=== PATIENT | female | born 1955 | race Caucasian/White ===

== ENCOUNTER 2018-02-17 12:27 | Inpatient (IN) | payer MEDICAID ==
--- NOTE | 2018-02-17 12:52 | EDPHY ---
H & P Stated Complaint: ams over 2-3 wks .headache Time Seen by Provider: 02/17/18 12:33 HPI/ROS: This patient presents with headache, and change in mental status described by her friend as mild confusion over the course of the past week or more associated with the headache intermittent for 3-4 weeks. The patient has difficulty with her memory and word-finding increasing gradually over the same course of time. She admits difficulty concentrating as well. She made an appointment to see her primary care physician-Dr. Lavinia Mack here at [facility] and was sent from Dr. Mack to the emergency department for concern of the patient's mental status and hypoxia. Patient is on a demand nasal cannula that was set to 3 L with an O2 sat of 86%. She wears this for COPD. She reports an increased frequency of cough recently as well, but no coughing is noted here her course of far. Her friend drove her to [facility] by private vehicle ROS: Constitutional: No high fevers or chills. HEENT: She denies any recent URI symptoms. Neuro: No recent head trauma. No focal numbness tingling weakness. Pulmonary: Cough and dyspnea Cardiovascular: She denies chest pain, heart palpitations or lightheadedness. No new leg swelling or pain. GI: She vomited last night. She has decreased appetite today. She denies abdominal pain. No diarrhea : She reports dysuria. Integumentary: She has chronic skin changes to left lower extremity with no new rashes or diaphoresis. 10 point review of symptoms is performed and otherwise negative with exception of pertinent positives and negatives listed in HPI and ROS Source: Patient, Other (She is accompanied by her friend who helps care for her) Exam Limitations: Clinical condition - Medical/Surgical History PMH: DVT with ? [place] filter Hep C Other PMH: COPD - Family History Significant Family History: No pertinent family hx - Social History Smoking Status: Former smoker Alcohol Use: None Drug Use: None - Physical Exam Exam: Physical exam: Vital signs are normal General: Patient is in no acute distress. HEENT: Is no external evidence of trauma on exam. Nose atraumatic. Ears: Clear bilaterally with no hemotympanum. Oropharynx: No dental trauma or malocclusion. No intraoral lacerations. Eyes: Pupils are equal and reactive to light. Extraocular motions are intact. Optic fundi: Clear with no papilledema or hemorrhage. Neck: Trachea is midline with no stridor. The patient has no midline neck tenderness and retains a full range of motion without increase in pain. Lungs: Rales at the right base otherwise clear to auscultation bilaterally. Cardiac: Regular rate and rhythm no murmur gallop or rub. Chest: Nontender. Abdomen: Soft nontender no organomegaly Back: Nontender Extremities: Atraumatic Neuro: GCS of 14-mild confusion. Cranial nerves II through XII intact. Left- sided pronator drift is present with mild left-sided weakness in the hand. Initial differential diagnosis: Intracranial bleed, intracranial neoplasm, migraine, tension headache, pneumonia, COPD exacerbation, viral syndrome, bowel obstruction, aspiration, urinary tract infection, myocardial ischemic disease Constitutional: Initial Vital Signs Heart Rate 62 02/17/18 12:30 Respiratory Rate 16 02/17/18 12:30 Blood Pressure 142/97 H 02/17/18 12:30 O2 Sat (%) 87 L 02/17/18 12:30 O2 Delivery Mode Room Air O2 (L/minute) 2 Allergies/Adverse Reactions: meperidine [From Demerol] Allergy (Verified 02/17/18 12:45) Home Medications: Medication Instructions Recorded BIOTIN 02/17/18 Caltrate 600-D3-Min Chew Tab 02/17/18 Escitalopram Oxalate 02/17/18 LORazepam 02/17/18 Lisinopril 02/17/18 Meclizine HCl 02/17/18 Proair Hfa 02/17/18 Tramadol HCl 02/17/18 Vitamin D3 (*) 02/17/18 Warfarin Sodium 02/17/18 Medical Decision Making - Diagnostics EKG Interpretation: 12 lead EKG performed shortly after arrival at 12:51 p.m. reveals sinus rhythm at 60 Intervals: Normal throughout [place]: Normal throughout ST segments: Normal throughout Overall assessment: Normal EKG Imaging Results: Imaging Impressions Chest X-Ray 02/17/18 12:45 Impression: No acute findings in the chest. Head CT 02/17/18 12:46 Impression: 1. Extensive vasogenic edema in the right hemisphere with at least 2 discrete low-attenuation masses, highly suspicious for malignancy, with 8 mm right to left midline shift. MR brain with contrast is recommended for further evaluation. 2. Moderate white matter hypodensity in the left hemisphere, which could be related to chronic microvascular ischemic gliosis or small additional lesions occult on unenhanced CT. Findings discussed with DIONY DIAZ 02/17/2018 at 13:08. Portable chest x-ray: Rotated but no focal abnormalities by my interpretation Imaging: Discussed imaging studies w/ callisthenics instructor Radiologist (CT head - d/w w/ Dr. Virgen. I also personally reviewed these images.) ED Course/Re-evaluation: IV, monitor, patient was switch from her home on demand nasal cannula O2 at 3 L satting 86% to our nasal cannula at 4 L and sats in the mid 90s. Patient has a normal fingerstick blood sugar of 89 on arrival. POC CBC is normal, POC basic metabolic panel is normal Discuss the patient's CT head and reviewed the images with Dr. Virgen, radiologist-multiple right-sided intracranial neoplasm is a appear to be consistent with metastases with associated mild edema and slight midline shift. No evidence for herniation I discussed the patient's intracranial lesions with her and her friend that drove her here to the emergency department with her consent. After Toradol 15 mg IV and Tylenol 1000 mg p. O. At 2:40 p.m. Patient still has severe 9/10 headache. Given this will treat her with small dose of morphine -4 mg to help control pain. Answered all of her questions prior to transfer to [facility] Discussion: Patient with intracranial lesions concerning for metastases with resultant edema to the right neocortex wtih some mild midline shift accounting for her mental status change. No truncal herniation. She warrants admission for further workup and evaluation. I think that the patient's hypoxia on arrival is attributable to some dysfunction with her home O2 rather than a acute pulmonary condition. She has chronic COPD and also history of prior PEs that resulted in her baseline hypoxia and home O2. I spoke with Destiny Rivers for the hospitalist service who accepts this patient to Dr. Street-hospitalist for admission to the neuro floor for further workup and treatment Given patient's cerebral edema and mild midline shift I also spoke with Neurosurgery on-call-Dr. Gonzalez who agrees with plan for Decadron 10 mg IV and recommends that she continue Decadron 4 mg q.6 hours IV thereafter - Data Points Laboratory Results: 02/17/18 02/17/18 13:19 12:45 POC Sodium 143 mEq/L mEq/L (135-145) POC Potassium 3.6 mEq/L mEq/L (3.3-5.0) POC Chloride 101.0 mEq/L mEq/L (97-110) POC Total CO2 31 mEq/L mEq/L (22-31) POC BUN 18 mg/dL mg/dL (7-23) POC Creatinine 0.7 mg/dL mg/dL (0.6-1.0) POC Glucose 97 mg/dL mg/dL 89 mg/dL mg/dL (70-100) (70-100) POC Calcium 9.6 mg/dL mg/dL (8.5-10.4) Medications Given: Discontinued Medications Acetaminophen (Tylenol) 1,000 mg PO EDNOW ONE Stop: 02/17/18 13:29 Last Admin: 02/17/18 13:53 Dose: 1,000 mg Ketorolac Tromethamine (Toradol) 15 mg IVP EDNOW ONE Stop: 02/17/18 13:29 Last Admin: 02/17/18 13:55 Dose: 15 mg Point of Care Test Results: CBC CBC Collection Date 02/17/18 CBC Collection Time 13:15 WBC 7.1 RBC 4.08 HGB 12.1 HCT 37.5 PLT 108 Neut # 3.8 Neut 53.1 LYMPH # 2.6 LYMPH 36.5 Other WBC # 0.7 Other WBC 10.4 MCV 91.9 Chemistry 02/17/18 02/17/18 13:19 12:45 POC Sodium 143 mEq/L mEq/L (135-145) POC Potassium 3.6 mEq/L mEq/L (3.3-5.0) POC Chloride 101.0 mEq/L mEq/L (97-110) POC Total CO2 31 mEq/L mEq/L (22-31) POC BUN 18 mg/dL mg/dL (7-23) POC Creatinine 0.7 mg/dL mg/dL (0.6-1.0) POC Glucose 97 mg/dL mg/dL 89 mg/dL mg/dL (70-100) (70-100) POC Calcium 9.6 mg/dL mg/dL (8.5-10.4) Departure - Departure Disposition: [facility] Acute Clinical Impression: Intracranial space-occupying lesion Condition: Fair Referrals: Lavinia Mack MD [Primary Care Provider] - As per Instructions
--- NOTE | 2018-02-17 12:59 | CPEKG ---
Test Reason : OPEN Blood Pressure : / mmHG Vent. Rate : 060 BPM Atrial Rate : 061 BPM P-R Int : 168 ms QRS Dur : 089 ms QT Int : 391 ms P-R-T Axes : 064 033 033 degrees QTc Int : 391 ms Sinus rhythm Confirmed by Ronaldo Kaufman ([id number]) on 02/17/2018 12:59:19 PM Referred By: Confirmed By:Ronaldo Kaufman
[2018-02-17] MEDS ORDERED: KETOROLAC 15 MG/1 ML SDV IVP ONE ×2 (13:28→20:01)
[2018-02-17] MEDS ORDERED: ACETAMINOPHEN 500 MG TAB PO ONE (13:28)
[2018-02-17] MEDS ORDERED: DEXAMETHASONE 10 MG/ML VIAL IVP ONE (14:45)
[2018-02-17 14:59] LABS: INR 3.97 (0.83-1.16); PROTIME(PATIENT) 38.4 SEC (12.0-15.0)
[2018-02-17] MEDS ORDERED: DEXAMETHASONE 4 MG/ML VIAL IVP ONE ×2 (15:05→16:34)
[2018-02-17] MEDS ORDERED: ALBUTEROL 3 ML DEYVIAL IH PRN (16:34)
[2018-02-17] MEDS ORDERED: DEXAMETHASONE 4 MG/ML VIAL IVP SCH (17:00)
--- NOTE | 2018-02-17 19:28 | PDGENHP ---
History and Physical History and Physical: Chief complaint: headaches History of present illness: The patient is a 62-year-old female who was sent to the ED by her PCP Dr. Lavinia Mack for confusion and headaches. Patient had been experiencing headaches for the last month. She has had difficulty speaking properly. She admits to having had difficulty walking and doing normal activities. History is limited because patient is unable to communicate effectively. Past medical history: COPD, anemia, diabetes type 2, gastroparesis, GERD, DVT, hepatitis-C, hypertension, obesity, anxiety, agoraphobia with panic disorder. Past surgical history: Appendectomy, cholecystectomy, gastric bypass. Medications: Escitalopram, lisinopril, lorazepam, meclizine, nystatin- triamcinolone topical, ProAir HFA, tramadol, warfarin, biotin, Caltrate/vitamin D3, vitamin-C, multivitamin. Allergies: Demerol, opiates. Social history: Lives alone. Former tobacco user. Does not drink alcohol or do drugs. Has a son and daughter in [facility]. Family history: Breast cancer, lung cancer, ovarian cancer, prostate cancer, acute RI/CAD, CVA, DM2, alcoholic liver cirrhosis. Review of systems: 10 point review of systems was conducted and is negative except per HPI. Physical exam: Vitals: Reviewed General: The patient is an obese female who is awake and in no acute distress. HEENT: normocephalic, extraocular movements intact, conjunctivae clear, no lesions on face. Mucous membranes moist. Neck: trachea midline, no visible masses, no external lesions. CV: +S1/S2, RRR, no MRG. Resp: unlabored, CTAB no RRW. Abd: soft and nondistended. Nontender throughout. Musculoskeletal: Normal muscle tone/bulk. Neuro: cranial nerves II - XII grossly intact. 4/5 strength bilat UE/LE. Psych: Anxious mood/appropriate affect. Skin: No pallor. Discoloration of b/l ankles. Heme/lymph: No pitting peripheral edema. Labs: INR 3.97. Sodium 143 potassium 3.6 BUN 18 creatinine 0.7. Other Data: Head CT - 1. Extensive vasogenic edema in the right hemisphere with at least 2 discrete low-attenuation masses , highly suspicious for malignancy, with 8 mm right to left midline shift. MR brain with contrast is recommended for further evaluation. 2. Moderate white matter hypodensity in the left hemisphere, which could be related to chronic microvascular ischemic gliosis or small additional lesions occult on unenhanced CT. CXR: no acute cardiopulmonary findings. Personally interpreted. EKG-normal sinus rhythm, rate 60. No acute ischemic changes. Personally interpreted. Impression and plan: Brain masses Vasogenic edema of brain, 2/2 above -likely metastatic -- consider lung, breast, renal, GI, melanoma, lymphoma -NSG consulted- to see pt in AM. -Dexamethasone for edema. -Seizure precautions, Neuro checks. -If pt has a seizure, she can be loaded on Keppra. -Check CT chest/abd/pelv to eval for primary tumor. -Recommend a full breast and skin exam to eval for masses or abnormal nevi. -Recommend Oncology consult. Chronic issues: COPD Cough -On O2. SVNs prn shortness of breath. DM2 -Diet controlled at home. -While on steroid, SSI low with hyperglycemia protocol. Obesity GERD -famotidine. DVT on warfarin -continue warfarin, pharmacy to dose. -Hold tonight's dose for supratherapeutic INR. -Warfarin may be reversed if patient gets a biopsy soon. HTN -prn Enalapril. Anxiety -prn Ativan. Pt normally takes Ativan TID but holding this for now. Hep C, undetectable viral load
[2018-02-17] MEDS ORDERED: NS W/ 20 KCl/L 1,000 ML IV SCH (20:00)
[2018-02-17] MEDS: ACETAMINOPHEN 325 MG TAB PO PRN (20:35)
[2018-02-17] MEDS: DEXAMETHASONE 4 MG/ML VIAL IVP SCH (22:44)
[2018-02-18] MEDS ORDERED: D50W 25 GM/50 ML SYR IVP PRN (00:24)
[2018-02-18] MEDS ORDERED: ENALAPRILAT DIHYDRATE 1.25 MG/ML VIAL IVP PRN (00:25)
[2018-02-18] MEDS: traMADol 50 MG TAB PO PRN ×2 (02:23→20:22)
[2018-02-18] MEDS: DEXAMETHASONE 4 MG/ML VIAL IVP SCH ×4 (05:19→23:21)
[2018-02-18 05:50] LABS: PLATELET COUNT 103 10^3/uL (150-400)
[2018-02-18 06:01] LABS: INR 4.38 (0.83-1.16); PROTIME(PATIENT) 41.4 SEC (12.0-15.0)
[2018-02-18] MEDS ORDERED: ENOXAPARIN 40 MG/0.4 ML SYR SC SCH (09:00)
[2018-02-18] MEDS ORDERED: LORazepam 1 MG TAB PO PRN (09:30)
[2018-02-18] MEDS: LISINOPRIL 5 MG TAB PO SCH (09:36)
[2018-02-18] MEDS: FAMOTIDINE 20 MG TAB PO SCH (09:36)
[2018-02-18] MEDS: ESCITALOPRAM OXALATE 10 MG TAB PO SCH (09:36)
[2018-02-18] MEDS: INSULIN LISPRO 100 UNIT/ML SC SCH ×3 (09:37→18:41)
--- NOTE | 2018-02-18 09:38 | HOSPPROG ---
Hospitalist Progress Note Assessment/Plan: Brain masses - 1.3 and 1.4 cm adjacent masses in temporoparietal lobe with vasogenic edema, suspicious for metastatic process -neurosurgery consult appreciated -MRI brain w/wo to further evaluate -cont Dexamethasone for edema. -CT chest/abd/pelv to eval for primary tumor today, will proceed with biopsy if amenable lesion found -discussed with oncology, who will consult -Seizure precautions, Neuro checks. -If pt has a seizure, load with keppra COPD - stable, no e/o exacerbation DM2 - SSI Obesity GERD - famotidine DVT on warfarin - INR supratherapeutic -hold AC as will likely need tissue sampling HTN - prn Enalapril. Anxiety / panic disorder - resume home ativan Hep C, undetectable viral load Full code Dispo - cont inpt Subjective: Pt feel ok, slight headache near right parietal region, but better today. No N/V. No vision changes. Mentation better today. No fevers. Taking po, a bit anxious. Objective: Vital Signs Temp Pulse Resp BP Pulse Ox 36.7 C 53 L 19 113/47 L 96 02/18/18 08:00 02/18/18 08:00 02/18/18 08:00 02/18/18 08:00 02/18/18 08:00 Laboratory Results 02/18/18 05:31 02/18/18 05:31 02/17/18 02/18/18 02/19/18 05:59 05:59 05:59 Intake Total 1120 Output Total 500 Balance 620 PT 41.4 SEC (12.0-15.0) H 02/18/18 05:31 INR 4.38 (0.83-1.16) H 02/18/18 05:31 - Physical Exam Constitutional: no apparent distress Eyes: PERRL Ears, Nose, Mouth, Throat: moist mucous membranes Cardiovascular: regular rate and rhythym Respiratory: no respiratory distress, clear to auscultation Gastrointestinal: normoactive bowel sounds, soft, non-tender abdomen Skin: warm Musculoskeletal: full muscle strength Neurologic: AAOx3 Psychiatric: interacting appropriately, anxious ICD10 Worksheet Patient Problems: Problems Problem Status Onset Intracranial space-occupying lesion Acute
--- NOTE | 2018-02-18 09:44 | ASMTCMCOM ---
CM Note CM Note Notes: Pt is a 62 y/o female admitted for headaches. Pt has been having difficulties walking, speaking and doing normal activities. Therapies have been ordered and awaiting recommendations. Pt is being followed by wound care. Needs are TBD at this time. CM to follow. Plan: TBD Date Signed: 02/18/2018 09:43 AM Electronically Signed By:RODRIGUEZ Walls
[2018-02-18] MEDS ORDERED: NS 1,000 ML IV SCH (12:00)
[2018-02-18] MEDS ORDERED: IOPAMIDOL (ISOVUE 370) 100 ML BTL IV ONE (12:21)
--- NOTE | 2018-02-18 12:34 | PDMN ---
Medical Necessity Medical necessity: Pt meets INPT criteria per MD as of 02/17/18 and [facility] (est. LOS >2 MN for eval/mgmt of brain masses with vasogenic edema of brain ; requiring dexamethasone, oncology consult).
--- NOTE | 2018-02-18 12:56 | SOAPPROG ---
Downtime Inpatient MD Late Entry SOAP Note: Pt seen and examined. Continue decadron Workup for systemic disease suggested No need for AEDs Continue Steroids Await MRI Oncology opinion. .me
--- NOTE | 2018-02-18 14:44 | WOCRNPDOC ---
[facility] Advanced Assessment Note - Skin Integrity Problem, Advanced Assess Coccyx Scab Dressing Type: Open to Air Closure Description: Not Approximated Prema Wound Tissue: Intact Wound Bed Color: Brown Wound Bed Constitution: Scab, Dried Exudate Wound Edges: Attached, Well Defined Site Measurement - Head-to-Toe Length X Width X Depth (cm): 0.5x0.3xscab Skin Integrity Problem Comment: Patient up and using the restroom when I entered the room. With assist from STEPH Jackson, patient assisted back to chair. Coccyx visualized with patient standing in front of chair. Small intact scab to deep anatomical groove of gluteal cleft. Patient states that she "scratched" herself and created small wound. I suspect that this is intertriginal dermatitis and that the patient scratched the area, causing this small opening. Wound will not continue to follow this wound. Please reconsult if needed.
--- NOTE | 2018-02-18 15:04 | GCON ---
NEUROSURGICAL CONSULTATION DATE OF CONSULTATION: 02/18/2018 REASON FOR CONSULTATION: Right cerebral metastasis. HISTORY OF PRESENT ILLNESS: The patient is a 62-year-old who for the last month has been experiencin g headaches, difficulty speaking and having problems with activities of daily living. Her PCP yester day sent her to the Emergency Department for these symptoms. She has been having difficulty walking and she really struggles to communicate and does not give a clear history. PAST MEDICAL HISTORY: Significant for COPD, anemia, diabetes, gastroparesis, GERD, DVT, hepatitis C, hypertension, obesity, anxiety, agoraphobia with panic disorder. SOCIAL HISTORY: She lives alone. She used to use tobacco. She is not currently using alcohol or dr johnson. She has a son and daughter in [place], and she has not told them that she is in the hospital . ALLERGIES: She has allergies to Demerol and opiates. MEDICATIONS: 1. Citalopram. 2. Lisinopril. 3. Lorazepam. 4. Meclizine. 5. Nystatin. 6. ProAir. 7. Tramadol. 8. Warfarin. 9. Biotin. 10. Some vitamins. REVIEW OF SYSTEMS: She denies recent fevers or chills or inflammatory symptoms. She denies focal we akness. She is having trouble communicating. PHYSICAL EXAMINATION: VITAL SIGNS: Blood pressure 120/68, MAP 85, heart rate 61, respiratory rate 1 5, saturation 98% on 2 L nasal cannula. NEURO: Her eyes are open. She follows commands bilaterally . She really struggles to follow commands perfectly on the left side, and appears to have a left-brigida ed apraxia, but she is able to do it with coaxing. She has a positive left pronator drift. There is no actual focal motor weakness on the left despite the pronator drift that is seen. DIAGNOSTIC REVIEW: CT scan of the head demonstrates at least 2 right-sided cerebral hemispheric mets with extensive vasogenic edema filling much of the right parietal and occipital regions, almost cert ainly related to underlying metastatic disease. ASSESSMENT: The patient is a 62-year-old with right-sided lesions that probably represent metastatic disease. I have suggested an MRI of the brain with and without contrast, and a workup for systemic cancers. Pending the results of this, we will determine a course of action. I have discussed this w ith the patient and it is quite likely that there will not be any need for surgical intervention in t his case. We do suggest that she continue with Decadron and, in general, we did not recommend the us e of antiepileptic drugs in cases like this unless the patient has a seizure. We do suggest, however , continuing with high-dose Decadron an oncologic consultation to try to determine optimum treatment. /[id number]/MODL
[2018-02-18] MEDS ORDERED: GADOBUTROL 10 ML VIAL IVP ONE (15:10)
[2018-02-18] MEDS ORDERED: WARFARIN SODIUM 5 MG TAB PO SCH (16:00)
[2018-02-18] MEDS: LORazepam 0.5 MG TAB PO SCH ×2 (17:01→20:21)
--- NOTE | 2018-02-18 17:30 | GCON ---
CRITICAL CARE CONSULTATION DATE OF CONSULTATION: 02/18/2018 REASON FOR CONSULTATION: Intensive care unit evaluation and management of intracranial mass, likely representing a metastatic cancer. HISTORY: The patient is a 62-year-old with multiple medical problems. She presented to her primary care physician with confusion and headaches, which had been present and increasing for about a month. There was some difficulty speaking and word finding and some difficulties with ambulation and perfo rming ADLs normally. The patient presented to the emergency department. CT scan of the head was don e, which showed 2 lesions on the right side very suspicious for malignancy. There was surrounding ed chris and an 8 mm [id number] shift. The patient was admitted to the ICU on step-down status. PAST MEDICAL HISTORY: Remarkable for chronic obstructive pulmonary disease, systemic hypertension, a nxiety and depression, previous DVT on anticoagulation, type 2 diabetes, gastroesophageal reflux dise ase, hepatitis, and obesity. She is status post appendectomy, cholecystectomy and distant gastric by pass. MEDICATIONS AT HOME: As listed. DRUG ALLERGIES: Demerol, other opiates. SOCIAL HISTORY: The patient lives alone. She does have a caregiver. She smoked cigarettes in the p ast, no longer. Alcohol is negative. She has a son and daughter in [place]. FAMILY HISTORY: A number of family members have had cancer. REVIEW OF SYSTEMS: A 10-point review of systems is negative except as outlined above. PHYSICAL EXAMINATION: GENERAL: Reveals a very pleasant woman with some mild word-finding problems, lying comfortably in bed. She complains of a slight occipital headache. She denies shortness of bozena ath or abdominal problems. VITAL SIGNS: Blood pressure is 120/50, heart rate 70 with sinus rhythm o n the monitor. She is on 2 L of oxygen. She is afebrile. HEENT: Unremarkable for lymphadenopathy or thyromegaly. There are no obvious cranial nerve abnormalities. There is no jugular venous disten tion or lymphadenopathy appreciated. CHEST: Reveals decreased breath sounds bilaterally with a prol onged expiratory phase. There are no wheezes, rales, or rhonchi. HEART: Regular in rate and rhythm . There is a soft systolic murmur. Heart tones are distant. There is no obvious gallop. ABDOMEN: Obese, soft, nontender. There are no obvious masses or evidence of organomegaly. No Rodriguez catheter is in place. EXTREMITIES: Remarkable for chronic skin changes and associated chronic edema with 1+ pitting. NEUROLOGIC: Remarkable for her word-finding problems. There is some mild weakness on the left compared to the right. Left-sided coordination appears to be decreased. DATABASE: CT scan of the head is as outlined above in the HPI, with lesions on the right side associ ated with edema. These likely represent metastatic disease. CT scan of the chest and abdomen is unr emarkable for evidence of any obvious primary. A small adrenal lesion may or may not be present, pos sibly consistent with a metastasis? ASSESSMENT: 1. Probable metastatic disease to the brain. Primary is unknown. Workup for a primary is indicated . If no primary can be found and there are not other metastatic lesions, then a brain biopsy may be needed. 2. Abnormal mental status secondary to #1, improving with Decadron. 3. History of anxiety and depression. She is doing well currently and will be maintained on her out patient medications. 4. Chronic obstructive pulmonary disease secondary to previous tobacco abuse. She does use an inhal er at home and is on oxygen 01/09. Inhaled therapies will be continued. There is no evidence of an e xacerbation. 5. History of other medical problems, including hypertension, type 2 diabetes, gastroesophageal refl ux disease, etc. These are all stable. Outpatient medications will be continued. 6. History of previous deep venous thrombosis, on anticoagulation with Coumadin. PT/INR are signifi cantly elevated, and Coumadin is currently being held. PLAN AND RECOMMENDATIONS: The patient will be kept in the intensive care unit, and neurologic status will be monitored. Decadron will be continued. Her usual outpatient medications will be continued. Pepcid will be given for GI prophylaxis. DVT prophylaxis will be with SCDs initially, as she is at risk for hemorrhage into her [employer] lesions. Glucoses will be followed and insulin given by sliding sc svetlana coverage. Appropriate pain control will be maintained. At the present time, she will be kept as a full code. Warfarin will be held and INR followed. An MRI of the brain has been ordered and is p ending. Further plans and recommendations will be made based on her progress over the next 12-24 hours. /[id number]/MODL
[2018-02-19] MEDS: DEXAMETHASONE 4 MG/ML VIAL IVP SCH ×4 (04:50→23:11)
[2018-02-19 06:27] LABS: INR 3.97 (0.83-1.16); PROTIME(PATIENT) 38.4 SEC (12.0-15.0)
--- NOTE | 2018-02-19 06:45 | SOAPPROG ---
Downtime Inpatient MD Late Entry SOAP Note: MRI reviewed. She has a multifocal enhancing process in the right periventricular area. This almost certainly represents a glioblastoma. Multifocal periventricular enhancing lesions can also be a primary RIG SITE ENGINEER lymphoma and CSF cytology sometimes is useful in discerning this, but I do not think that will be helpful in this case because we have already started her on decadron AND this diagnosis is less likely. The most useful course would be to consider a stereotactic biopsy for tissue diagnosis and we should be able to do this tomorrow morning. She will need to be NPO past midnight. She may need another stealth protocol MRI She needs to be on the OR schedule. We will get this set up. I will discuss these options with her around noon today. Dr. Gonzalez will likely be the one doing the biopsy. -naomi pelaez md
[2018-02-19] MEDS ORDERED: PHYTONADIONE 2.5 MG/2.5 ML ORAL UDL PO ONE (06:51)
[2018-02-19] MEDS: LORazepam 0.5 MG TAB PO SCH ×3 (07:48→21:05)
[2018-02-19] MEDS: FAMOTIDINE 20 MG TAB PO SCH ×2 (07:48→21:06)
[2018-02-19] MEDS: LISINOPRIL 5 MG TAB PO SCH (07:48)
[2018-02-19] MEDS: ESCITALOPRAM OXALATE 10 MG TAB PO SCH (07:49)
[2018-02-19] MEDS: INSULIN LISPRO 100 UNIT/ML SC SCH ×3 (07:49→17:38)
--- NOTE | 2018-02-19 10:43 | HOSPPROG ---
Hospitalist Progress Note Assessment/Plan: Brain masses - 1.3 and 1.4 cm adjacent masses in temporoparietal lobe with vasogenic edema, suspicious for GBM by MRI findings, reviewed with rads and neurosurg. CT chest/abd/pelvis unrevealing for primary source. 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 Pt has h/o PE during and multiple DVT's, no known hypercoagulable state -Oral Vitamin K today to reverse INR for OR tomorrow -consider LE u/s for baseline, doubt active clot with therapeutic INR on arrival -plan for heparin bridge post-operatively COPD - stable, no e/o exacerbation DM2 - SSI Obesity GERD - famotidine HTN - prn Enalapril. Anxiety / Agoraphobia / panic disorder - resume home ativan Hep C, undetectable viral load Full code Dispo - cont inpt, ICU Subjective: Pt feels ok, no headaches. Speech is normal. She is worried about OR plans and diagnosis, but coping fairly well. Objective: Vital Signs Temp Pulse Resp BP Pulse Ox 37.0 C 65 20 125/50 H 95 02/19/18 08:00 02/19/18 08:00 02/19/18 08:00 02/19/18 08:00 02/19/18 08:00 Laboratory Results 02/18/18 18:35 02/18/18 05:31 02/18/18 02/19/18 02/20/18 05:59 05:59 05:59 Intake Total 1120 1433 Output Total 500 300 Balance 620 1133 PT 38.4 SEC (12.0-15.0) H 02/19/18 06:08 INR 3.97 (0.83-1.16) H 02/19/18 06:08 - Physical Exam Constitutional: no apparent distress Eyes: PERRL Ears, Nose, Mouth, Throat: moist mucous membranes Cardiovascular: regular rate and rhythym, no murmur, rub, or gallop Respiratory: no respiratory distress, clear to auscultation Gastrointestinal: normoactive bowel sounds, soft, non-tender abdomen Skin: warm Musculoskeletal: full muscle strength Neurologic: AAOx3 Psychiatric: interacting appropriately ICD10 Worksheet Patient Problems: Problems Problem Status Onset Intracranial space-occupying lesion Acute
[2018-02-19] MEDS: traMADol 50 MG TAB PO PRN ×2 (11:48→21:05)
--- NOTE | 2018-02-19 14:55 | ASMTCMCOM ---
CM Note CM Note Notes: Patient is going for biopsy tomorrow and a possible lumbar puncture. MDPOA was established today and the paperwork has been placed in the front of her chart. D/C plan remains TBD . CM will follow. Date Signed: 02/19/2018 02:54 PM Electronically Signed By:Gina Brock LCSW
--- NOTE | 2018-02-19 15:48 | PDINTPN ---
Nurses Educator Progress Note Assessment/Plan: Assessment: Likely glioblastoma. For possibly for brain biopsy tomorrow. History of DVT/PE. On warfarin anticoagulation. INR high. Will need to be reversed. Getting vitamin K today. Likely will need FFP prior to biopsy. History of COPD, on oxygen 01/09. No evidence of exacerbation. Obesity. Insulin-requiring diabetes. Higher glucoses secondary to Decadron. May need additional coverage, possibly add Lantus if glucoses continue to run high. History of other medical problems including systemic hypertension, gastroesophageal reflux, anxiety and depression. Plan: Continue present care. Continue Decadron. Follow sugars. Continue insulin. Increased necessary. Continue pain control, supportive care. Follow INR in a.m.. Fresh frozen plasma if indicated prior to surgical biopsy. NPO after midnight. 25 min of critical care time spent with the patient. Discussed with nursing, hospitalist, ICU multi disciplinary team. Subjective: No complaints. Headache seems to be better. Some word-finding problems persist. Denies pain, shortness of breath. Objective: Vital Signs Temp Pulse Resp BP Pulse Ox 37.2 C 54 L 17 134/75 H 97 02/19/18 11:29 02/19/18 11:29 02/19/18 11:29 02/19/18 11:29 02/19/18 11:29 Laboratory Results 02/18/18 18:35 02/18/18 05:31 02/18/18 02/19/18 02/20/18 05:59 05:59 05:59 Intake Total 1120 1433 450 Output Total 500 300 Balance 620 1133 450 PT 38.4 SEC (12.0-15.0) H 02/19/18 06:08 INR 3.97 (0.83-1.16) H 02/19/18 06:08 MRI: Most consistent with primary brain tumor: Glioblastoma. Physical Exam - Physical Exam General Appearance: alert, no apparent distress, obese EENT: PERRL/EOMI, other (Nasal cannula at 2 L) Neck: normal inspection Respiratory: lungs clear (Anteriorly), decreased breath sounds (At bases), rales (Few rales at bases), No rhonchi Cardiac/Chest: bradycardia (Sinus), No gallop Abdomen: normal bowel sounds, non-tender, soft (Obese) Extremities: pedal edema (1 to 2+ bilaterally) Neuro/Psych: cognition abnormalities (Mild, probably at baseline?), speech abnormalities (Still with some word-finding problems in expressive aphasia), No no motor/sensory deficits (Moves all extremities. Some weakness on the left) ICD10 Worksheet Patient Problems: Problems Problem Status Onset Intracranial space-occupying lesion Acute
[2018-02-19] MEDS: ACETAMINOPHEN 325 MG TAB PO PRN (21:06)
[2018-02-20] MEDS: DEXAMETHASONE 4 MG/ML VIAL IVP SCH ×4 (04:02→22:16)
[2018-02-20 04:30] LABS: INR 1.54 (0.83-1.16); PROTIME(PATIENT) 18.6 SEC (12.0-15.0)
[2018-02-20] MEDS ORDERED: LR 1,000 ML IV ONE (07:47)
[2018-02-20] MEDS ORDERED: IOPAMIDOL (ISOVUE 370) 100 ML BTL IV ONE (08:32)
--- NOTE | 2018-02-20 08:33 | PDANEPAE ---
ANE Past Medical History - Pulmonary History Hx Oxygen in Use at Home: Yes O2 in Use at Home (L/minute): 2.5 Hx Sleep Apnea: No Sleep Apnea Screening Result - Last Documented: Positive - Endocrine History Hx Diabetes: No - Chronic Pain History Chronic Pain: No ANE Review of Systems Review of Systems: ANE Patient History - Allergies Allergies/Adverse Reactions: meperidine [From Demerol] Allergy (Verified 02/17/18 12:45) - Home Medications Home Medications: Albuterol [Proventil Inhaler HFA (*)] 1 - 2 puffs IH Q4H PRN 02/17/18 [Last Taken Unknown] Escitalopram Oxalate [Lexapro] 20 mg PO DAILY 02/17/18 [Last Taken 02/17/18] Herbals/Supplements -Info Only 1 ea PO DAILY 02/17/18 [Last Taken Unknown] LORazepam [Ativan (*)] 0.5 mg PO TID 02/17/18 [Last Taken Unknown] LORazepam [Ativan (*)] 1 mg PO TID PRN 02/17/18 [Last Taken Unknown] Lisinopril [Zestril 5 mg (*)] 5 mg PO DAILY 02/17/18 [Last Taken 02/17/18] Warfarin Sodium [Coumadin 5MG (*)] 10 mg PO BARBOSA 02/17/18 [Last Taken 02/14/18] Warfarin Sodium [Coumadin 5MG (*)] 12.5 mg PO MOTUWETHFRSA 02/17/18 [Last Taken 02/17/18] traMADol [Ultram 50 mg (*)] 50 mg PO Q6H PRN 02/17/18 [Last Taken Unknown] - NPO status NPO Since - Liquids (Date): 02/19/18 NPO Since - Liquids (Time): 23:00 NPO Since - Solids (Date): 02/20/18 NPO Since - Solids (Time): 23:00 - Smoking Hx Smoking Status: Former smoker - Alcohol Use Alcohol Use: None ANE Labs/Vital Signs - Labs Result Diagrams: 02/20/18 03:45 02/18/18 05:31 - Vital Signs Blood Pressure: 140/60 Heart Rate: 56 Respiratory Rate: 16 O2 Sat (%): 98 Height: 162.56 cm Weight: 109.134 kg ANE Physical Exam - Airway Neck exam: decreased ROM Mallampati Score: Class 3 Mouth exam: dentures - Pulmonary Pulmonary: reduced air movement - Cardiovascular Cardiovascular: regular rate and rhythym - ASA Status ASA Status: III ANE Anesthesia Plan Anesthesia Plan: general endotracheal anesthesia
[2018-02-20] MEDS ORDERED: ROCURONIUM 50 MG/5 ML VIAL ONE (08:39)
[2018-02-20] MEDS ORDERED: LIDOCAINE 2% 100 MG/5 ML SYR ONE (08:39)
[2018-02-20] MEDS ORDERED: PROPOFOL 200 MG/20 ML VIAL ONE (08:39)
[2018-02-20] MEDS ORDERED: fentaNYL 100 MCG/2 ML INJ ONE ×2 (08:39→09:40)
[2018-02-20] MEDS ORDERED: THROMBIN (BOVINE) 5,000 UNIT VIAL TP ONE (08:44)
[2018-02-20] MEDS ORDERED: GENTAMICIN SULFATE 80 MG/2 ML VIAL ONE (08:44)
[2018-02-20] MEDS ORDERED: CHLORHEXIDINE GLUC HIBICLENS 118 ML BTL TP ONE (08:44)
[2018-02-20] MEDS ORDERED: BACITRACIN ZINC 0.5 OZ OINTTUBE TP ONE (08:44)
[2018-02-20] MEDS ORDERED: LIDO/EPI 1% **Not for Epidural 20 ML MDV ONE (08:45)
[2018-02-20] MEDS ORDERED: POVIDONE-IODINE 30 GM OINTTUBE TP ONE (08:45)
[2018-02-20] MEDS ORDERED: ceFAZolin 2 GM/DEXTROSE 100 ML IV ONE (09:30)
[2018-02-20] MEDS ORDERED: SUGAMMADEX SODIUM 200 MG/2 ML VIAL IVP ONE (10:55)
[2018-02-20] MEDS ORDERED: niCARdipine/NACL 200 ML IV PRN (11:09)
[2018-02-20] MEDS ORDERED: MAGNESIUM HYDROXIDE 30 ML UDCUP PO PRN (11:09)
[2018-02-20] MEDS ORDERED: LACTULOSE 20 GM/30 ML UDCUP PO PRN (11:09)
[2018-02-20] MEDS ORDERED: POLYETHYLENE GLYCOL 3350 17 GM PKT PO PRN (11:09)
[2018-02-20] MEDS ORDERED: BISACODYL 10 MG SUPP PR PRN (11:09)
[2018-02-20] MEDS ORDERED: NS W/ 20 KCl/L 1,000 ML IV SCH (11:15)
[2018-02-20] MEDS ORDERED: fentaNYL 100 MCG/2 ML INJ IVP PRN (11:16)
[2018-02-20] MEDS ORDERED: ALBUTEROL 3 ML DEYVIAL IH PRN (11:16)
[2018-02-20] MEDS ORDERED: NALOXONE HCL 0.4 MG/ML INJ IVP PRN (11:16)
[2018-02-20] MEDS ORDERED: ONDANSETRON 4 MG/2 ML VIAL IVP PRN (11:16)
--- NOTE | 2018-02-20 11:16 | SOAPPROG ---
SOAP Progress Note Assessment/Plan: Assessment: 62 yo F sp right thalamic brain biopsy Plan: stable CT this afternoon no need for keppra SBP < 160 mmhg on decadron please call with neuro changes SDU ok with Q2 hour neuro checks 02/20/18 11:14 Subjective: + headache, no N/V. Objective: Vital Signs Temp Pulse Resp BP Pulse Ox 37 C 56 L 16 140/60 H 98 02/20/18 07:44 02/20/18 08:33 02/20/18 08:33 02/20/18 08:33 02/20/18 08:33 Laboratory Results 02/20/18 03:45 02/18/18 05:31 02/19/18 02/20/18 02/21/18 05:59 05:59 05:59 Intake Total 1433 2350 Output Total 300 400 Balance 1133 1950 PT 18.6 SEC (12.0-15.0) H 02/20/18 03:45 INR 1.54 (0.83-1.16) H 02/20/18 03:45 somnolent PERRL, no facial droop KIRSTIN x 4 + light touch C/D/I ICD10 Worksheet Patient Problems: Problems Problem Status Onset Intracranial space-occupying lesion Acute
--- NOTE | 2018-02-20 11:18 | POSTANESTH ---
Post Anesthetic Evaluation Cardiovascular Status: Similar to Pre-Op Cond Respiratory Status: Similar to Pre-op Cond. Level of Consciousness/Mental Status: Mildly Sleepy, Arousable Pain Control: Adequate, Prn Tx Ordered Nausea/Vomiting Control: Adequate, Prn Tx Ordered Complications Possibly Related to Anesthesia: None Noted
[2018-02-20] MEDS: INSULIN LISPRO 100 UNIT/ML SC SCH ×3 (14:16→17:25)
[2018-02-20] MEDS: OXYCODONE/APAP 5/325 TAB PO PRN ×3 (14:19→22:17)
[2018-02-20] MEDS: LORazepam 0.5 MG TAB PO SCH ×3 (14:19→20:16)
[2018-02-20] MEDS: LISINOPRIL 5 MG TAB PO SCH (14:23)
[2018-02-20] MEDS: ESCITALOPRAM OXALATE 10 MG TAB PO SCH (14:24)
[2018-02-20] MEDS: FAMOTIDINE 20 MG TAB PO SCH ×2 (14:24→20:16)
--- NOTE | 2018-02-20 15:50 | HOSPPROG ---
Hospitalist Progress Note Assessment/Plan: 62-year-old woman admitted from clinic with confusion and headaches. Found to have a brain mass associated with edema. She went to have a brain biopsy today. # brain mass, no obvious primary noted on CT of the chest abdomen and pelvis * Reviewed neurosurgery notes, status post biopsy today * Continue dexamethasone for edema * Consult with Oncology once tissue diagnosis * Seizure precautions on Keppra # history of recurrent DVT on warfarin. Coumadin held today post surgery will need to review with Neurosurgery 1 safe to resume anticoagulation. * Continue SCDs # COPD, stable # diabetes, insulin sliding scale # GE reflux disease currently on famotidine # hypertension, p.r.n. Enalapril # anxiety with panic disorder on Ativan p.r.n. # hepatitis-C, undetectable viral load Subjective: Patient new to me and chart reviewed. Patient complains of headache pain otherwise doing quite well postop biopsy Objective: Vital Signs Temp Pulse Resp BP Pulse Ox 36.7 C 75 20 120/57 L 94 02/20/18 12:08 02/20/18 14:37 02/20/18 14:37 02/20/18 14:37 02/20/18 14:37 Laboratory Results 02/20/18 03:45 02/18/18 05:31 02/19/18 02/20/18 02/21/18 05:59 05:59 05:59 Intake Total 1433 2350 550 Output Total 300 400 1 Balance 1133 1950 549 PT 18.6 SEC (12.0-15.0) H 02/20/18 03:45 INR 1.54 (0.83-1.16) H 02/20/18 03:45 - Physical Exam Constitutional: obese, uncomfortable Ears, Nose, Mouth, Throat: moist mucous membranes Cardiovascular: regular rate and rhythym Respiratory: no respiratory distress, clear to auscultation Gastrointestinal: soft, non-tender abdomen Genitourinary: no bladder fullness Skin: warm Musculoskeletal: generalized weakness Neurologic: No facial droop Psychiatric: interacting appropriately ICD10 Worksheet Patient Problems: Problems Problem Status Onset Intracranial space-occupying lesion Acute
--- NOTE | 2018-02-20 17:18 | PDINTPN ---
External Auditor Progress Note Assessment/Plan: Assessment: Likely glioblastoma. Status post brain biopsy on the right today. Results pending.. History of DVT/PE. On warfarin anticoagulation. On hold currently. Will discuss re-initiation of warfarin with neuro surgery. History of COPD, on oxygen 24/ at home, but does not appear to need this at present. Saturations 94% on room air today. Obesity. Insulin-requiring diabetes. Higher glucoses secondary to Decadron: 200s. Will add Lantus at night. History of other medical problems including systemic hypertension, gastroesophageal reflux, anxiety and depression. Plan: Continue present care. Continue Decadron. Add Lantus, continue p.r.n. Insulin, follow sugars. Continue pain control, supportive care. Follow INR in a.m. Await biopsy results. 25 min of critical care time spent with the patient. Discussed with nursing, hospitalist, ICU multi disciplinary team. Subjective: Complains of headache following brain biopsy. Objective: Vital Signs Temp Pulse Resp BP Pulse Ox 36.7 C 61 20 116/62 94 02/20/18 12:08 02/20/18 16:00 02/20/18 16:00 02/20/18 16:00 02/20/18 14:37 Laboratory Results 02/20/18 03:45 02/18/18 05:31 02/19/18 02/20/18 02/21/18 05:59 05:59 05:59 Intake Total 1433 2350 550 Output Total 300 400 1 Balance 1133 1950 549 PT 18.6 SEC (12.0-15.0) H 02/20/18 03:45 INR 1.54 (0.83-1.16) H 02/20/18 03:45 Physical Exam - Physical Exam General Appearance: alert, mild distress, obese, other (Up in chair) EENT: PERRL/EOMI, other (On room air) Neck: normal inspection Respiratory: lungs clear (Anteriorly), decreased breath sounds (At bases), wheezing (Few wheezes at the bases, coarse breath sounds) Cardiac/Chest: regular rate, rhythm Abdomen: normal bowel sounds, non-tender, soft Pelvic Exam: other (No Rodriguez catheter) Skin: normal color, warm/dry Extremities: pedal edema Neuro/Psych: speech abnormalities (Word-finding problems persist), No no motor/ sensory deficits (Mild left-sided weakness), No cognition abnormalities ( Probably close to baseline) ICD10 Worksheet Patient Problems: Problems Problem Status Onset Intracranial space-occupying lesion Acute
[2018-02-20] MEDS: traMADol 50 MG TAB PO PRN (20:16)
[2018-02-20] MEDS: SENNOSIDES/DOCUSATE SODIUM TAB PO SCH (20:16)
--- NOTE | 2018-02-20 21:28 | GOP ---
DATE OF OPERATION: 02/20/2018 SURGEON: Keny Gonzalez MD NEUROSURGEON: Keny Gonzalez MD. LINTER DRIER OPERATOR: Abdelrahman Smalls PA-C. ANESTHESIA: General endotracheal. PREOPERATIVE DIAGNOSIS: Multifocal right posterior temporal and parietal brain lesions. POSTOPERATIVE DIAGNOSIS: Multifocal right posterior temporal and parietal brain lesions. PROCEDURE PERFORMED: 1. Right posterior temporal stereotactic brain biopsy. 2. Use of Stealth stereotactic navigation for brain biopsy. FINDINGS: Successful right stereotactic brain biopsy. SPECIMENS: Right temporal brain biopsy for frozen and then permanent section with the frozen section showing glioma. There were no drains. ESTIMATED BLOOD LOSS: Less than 5 cc. Fluids and urine output per the anesthesia record. INDICATIONS: The patient is a 62-year-old woman who presented with some mild left arm weakness, head aches, and confusion. CT and subsequent MRI scan revealed contrast-enhancing lesions in the right po sterior temporal lobe adjacent to the lateral ventricle and several other lesions scattered throughou t the subcortical white matter in the same region. The imaging of this was consistent with either gl ioma or lymphoma, and therefore she was scheduled for a stereotactic biopsy. I discussed the risks a nd benefits of this with her prior to the procedure, including that of bleeding and the possibility o f getting nondiagnostic tissue, given the small size of the biopsy. We also discussed things like se izures and infection. She agreed to proceed and we are proceeding electively today. DESCRIPTION OF PROCEDURE: After informed consent was obtained from the patient, the patient was brou ght to the operating room and was placed in a supine position on the operating table. A formal time- out was performed, identifying the patient by name, medical record number, and date of . Preope rative antibiotics were given. The endotracheal tube was placed and general endotracheal anesthesia was smoothly induced. The patient's head was placed in the Rubio pins and turned toward the left side, exposing the right posterior temporal region. The Stealth was registered to the scalp and [facility] ked for accuracy using known surface landmarks. The accuracy appeared excellent, and the entry point to the preplanned trajectory to the right posterior temporal lobe was identified just superior and p osterior to the right pinna. This was marked and a small strip of hair was clipped. 10 cc of 0.25% Marcaine with epinephrine was infiltrated in the skin for hemostasis. The head was then prepped and draped in normal sterile fashion. A skin incision was made using a 10 blade and the subcutaneous tissues were dissected using monopolar electrocautery. A few Nancy clips were placed for hemostasis. A self-retaining retractor was place d. Again, the entry point to the trajectory was localized using navigation and a single bur hole was created using the restaurant hourly team member. The [employer] Navigus frame was then connected to the skull using the m anufacturer-supplied screws. The biopsy setup was then connected and the trajectory was locked in us ing the navigation. The planned depth of the needle to the preplanned target point was recorded, and the depth was set using the manual depth gauge onto the biopsy needle. A small opening was then mad e in the dura and the biopsy needle was passed using navigation to the center of the lesion. At this point, several needle biopsies were taken at 12 o'clock, 3 o'clock, 6 o'clock, and 9 o'clock positio ns. These were sent for frozen section. Talking with the pathologist, this showed some abnormal tis jody with some gemistocytes and could represent glioma, but was not extremely obvious. I then took se veral more cores and sent those again for 2nd frozen section, which was consistent with glioma. We bg briggs took 6 further cores, which all grossly appeared abnormal, and these were sent for permanent path ology. The biopsy needle was then removed with no sign of any bleeding. The dura was covered with some Gelf oam and the bur hole was covered with a bur hole cover. The wound was then copiously irrigated using bacitracin irrigation. The galea was closed using interrupted 2-0 Vicryl. The skin was closed usin g anna. Sterile dressings were placed. The patient was then awakened in the operating room. She was extubated, transferred to the PACU in stable condition. There were no operative complications. I was scrubbed and present the entire procedure. All sponge and needle counts were correct at the e nd of the case. /[id number]/MODL
[2018-02-21] MEDS: DEXAMETHASONE 4 MG/ML VIAL IVP SCH ×4 (05:02→22:31)
[2018-02-21 06:09] LABS: INR 1.17 (0.83-1.16); PROTIME(PATIENT) 15.1 SEC (12.0-15.0)
[2018-02-21 06:16] LABS: PLATELET COUNT 109 10^3/uL (150-400)
[2018-02-21] MEDS: INSULIN LISPRO 100 UNIT/ML SC SCH ×3 (08:25→17:52)
[2018-02-21] MEDS: OXYCODONE/APAP 5/325 TAB PO PRN ×3 (08:28→21:22)
[2018-02-21] MEDS: LISINOPRIL 5 MG TAB PO SCH (08:36)
[2018-02-21] MEDS: FAMOTIDINE 20 MG TAB PO SCH ×2 (08:37→21:23)
[2018-02-21] MEDS: LORazepam 0.5 MG TAB PO SCH ×3 (08:37→21:23)
[2018-02-21] MEDS: ESCITALOPRAM OXALATE 10 MG TAB PO SCH (08:37)
[2018-02-21] MEDS: SENNOSIDES/DOCUSATE SODIUM TAB PO SCH ×2 (08:37→21:23)
[2018-02-21] MEDS ORDERED: INSULIN GLARGINE 100 UNITS/ML UNIT SC SCH ×2 (09:00→10:18)
--- NOTE | 2018-02-21 10:48 | HOSPPROG ---
Hospitalist Progress Note Assessment/Plan: 62-year-old woman admitted from clinic with confusion and headaches. Found to have a brain mass associated with edema. She went to have a brain biopsy yesterday, And did well. Continues to complain of headache pain and some mild confusion. Has ongoing weakness # brain mass, no obvious primary noted on CT of the chest abdomen and pelvis * Reviewed neurosurgery notes, status post biopsy. * Continue dexamethasone for edema * Consult with Oncology once tissue diagnosis * Seizure precautions on Keppra * Continues with some mild cognitive issues and speech issues. * Continue therapies. 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 Coumadin held today post surgery will need to review with Neurosurgery 1 safe to resume anticoagulation. * Continue SCDs # COPD, stable # diabetes, insulin sliding scale # GE reflux disease currently on famotidine # hypertension, p.r.n. Enalapril # anxiety with panic disorder on Ativan p.r.n. # hepatitis-C, undetectable viral load Subjective: Continues to complain of headache pain and feels like she has difficulty concentrating and difficulty with her cognition. Objective: Vital Signs Temp Pulse Resp BP Pulse Ox 36.5 C 52 L 12 134/65 H 93 02/21/18 08:00 02/21/18 08:00 02/21/18 08:00 02/21/18 08:00 02/21/18 08:00 Laboratory Results 02/21/18 05:42 02/21/18 05:42 02/20/18 02/21/18 02/22/18 05:59 05:59 05:59 Intake Total 2350 1839 Output Total 400 1 Balance 1950 1838 PT 15.1 SEC (12.0-15.0) H 02/21/18 05:42 INR 1.17 (0.83-1.16) H 02/21/18 05:42 - Physical Exam Constitutional: obese Eyes: PERRL Ears, Nose, Mouth, Throat: moist mucous membranes Cardiovascular: regular rate and rhythym, systolic murmur Respiratory: no respiratory distress, clear to auscultation Gastrointestinal: soft, non-tender abdomen Genitourinary: no bladder fullness Skin: normal color Musculoskeletal: generalized weakness Psychiatric: interacting appropriately ICD10 Worksheet Patient Problems: Problems Problem Status Onset Intracranial space-occupying lesion Acute
--- NOTE | 2018-02-21 11:11 | SOAPPROG ---
SOAP Progress Note Assessment/Plan: Assessment: 62 yo F POD 31 right thalamic brain biopsy Plan: stable and well overall CT shows biopsy area in posterior portion of lesion, no new hemorrhage no need for keppra SBP < 160 mmhg on decadron ok to transfer to floor with q4 hour neuro checks will need Oncology consult ok to start lovenox please call with neuro changes discussed with Dr Gonzalez 02/20/18 11:14 02/21/18 11:09 Subjective: continued headache, no N/V. Objective: Vital Signs Temp Pulse Resp BP Pulse Ox 36.5 C 52 L 12 134/65 H 93 02/21/18 08:00 02/21/18 08:00 02/21/18 08:00 02/21/18 08:00 02/21/18 08:00 Laboratory Results 02/21/18 05:42 02/21/18 05:42 02/20/18 02/21/18 02/22/18 05:59 05:59 05:59 Intake Total 2350 1839 Output Total 400 1 Balance 1950 1838 PT 15.1 SEC (12.0-15.0) H 02/21/18 05:42 INR 1.17 (0.83-1.16) H 02/21/18 05:42 AAOx4, +FC PERRL, EOMI, no facial drop 5/5 + light touch C/D/I ICD10 Worksheet Patient Problems: Problems Problem Status Onset Intracranial space-occupying lesion Acute
--- NOTE | 2018-02-21 12:24 | PDINTPN ---
Electrical Plumbing Supervisor Progress Note Assessment/Plan: Assessment: Likely glioblastoma. Status post brain biopsy on the right 02/19. Results pending.. History of DVT/PE. On warfarin anticoagulation on admission. On hold currently. Okay for prophylactic anticoagulation per neuro surgery at this point. Will discuss reintroduction of warfarin with them. History of COPD, on oxygen 24/ at home. Obesity. Insulin-requiring diabetes. Higher glucoses secondary to Decadron: 200 to 300 range today. Lantus added and sliding scale increased. History of other medical problems including systemic hypertension, gastroesophageal reflux, anxiety and depression: Stable Plan: Continue present care. Continue Decadron. Will start prophylactic Lovenox today and discuss re-initiation of Coumadin with neuro surgery. Add Lantus, continue higher dose sliding scale Insulin, follow sugars. Continue pain control, supportive care. Follow INR in a.m. Await biopsy results. 25 min of critical care time spent with the patient. Discussed with nursing, hospitalist, ICU multi disciplinary team. Subjective: Feels better, up in chair. Word-finding problems persist. Objective: Vital Signs Temp Pulse Resp BP Pulse Ox 36.5 C 52 L 12 134/65 H 93 02/21/18 08:00 02/21/18 08:00 02/21/18 08:00 02/21/18 08:00 02/21/18 08:00 Laboratory Results 02/21/18 05:42 02/21/18 05:42 02/20/18 02/21/18 02/22/18 05:59 05:59 05:59 Intake Total 2350 1839 Output Total 400 1 250 Balance 1950 1838 -250 PT 15.1 SEC (12.0-15.0) H 02/21/18 05:42 INR 1.17 (0.83-1.16) H 02/21/18 05:42 Physical Exam - Physical Exam General Appearance: alert, no apparent distress, obese EENT: PERRL/EOMI, other (Nasal cannula at 1-2 L, transitioning to room air.) Neck: supple Respiratory: lungs clear (Anterior), decreased breath sounds (At bases, coarse breath sounds), wheezing (Few expiratory wheezes) Cardiac/Chest: bradycardia (Sinus) Abdomen: normal bowel sounds, non-tender, soft, distended (Mildly distended, obese) Skin: normal color, warm/dry Extremities: pedal edema Neuro/Psych: speech abnormalities (Word-finding problems about the same as yesterday), No no motor/sensory deficits (Some left-sided weakness), No cognition abnormalities ICD10 Worksheet Patient Problems: Problems Problem Status Onset Intracranial space-occupying lesion Acute
[2018-02-21] MEDS: traMADol 50 MG TAB PO PRN ×2 (13:49→21:23)
[2018-02-21] MEDS: ENOXAPARIN 40 MG/0.4 ML SYR SC SCH (13:52)
--- NOTE | 2018-02-21 14:58 | ASMTCMCOM ---
CM Note CM Note Notes: Spoke with patient and her roommate Braden about the home situation. Apparently, Barden is also a paid caregiver (works for an agency called [employer]), providing about 10-12 hrs/week. Patient also has a weekly RN visit. If I had to guess, she has HCBS through Medicaid. She could not remember the name of her [facility] caregiver, so we will have to call them tomorrow to find out. Patient says she'd like more help at home. She would certainly benefit from skilled help. Oncology has been consulted and bx results are pending. Case Management will follow. Date Signed: 02/21/2018 02:57 PM Electronically Signed By:Shelly Oconnell RN
[2018-02-21] MEDS ORDERED: WARFARIN SODIUM 5 MG TAB PO SCH (16:00)
[2018-02-22 06:14] LABS: INR 1.08 (0.83-1.16); PROTIME(PATIENT) 14.2 SEC (12.0-15.0)
[2018-02-22] MEDS: DEXAMETHASONE 4 MG/ML VIAL IVP SCH ×3 (06:16→19:08)
--- NOTE | 2018-02-22 07:03 | NEUSURGPN ---
Date of Surgery: 02/20/18 Post Op Day: 2 Assessment/Plan: Assessment: 62 yo F POD #2 right thalamic brain biopsy Plan: -stable and doing well overall. Speech still an issue but a bit better per RN -post op CT shows biopsy area in posterior portion of lesion, no new hemorrhage was noted -no need for Keppra per Dr Gonzalez -keep SBP < 160 mm hg -on decadron-will decrease to q12 hrs per Dr Gavin -Dr Gavin saw pt this am as well -ok to transfer to floor with q4 hour neuro checks. Per Dr Gonzalez-NS to sign off and will recommend follow up in 2 weeks -will need Oncology consult which is pending today who can direct care and medications at this time pending results of biopsy -ok to start lovenox -please call with neuro changes -call with any questions or concerns Subjective: Awake and alert. NAD. Eating/drinking and voiding. No f/c/n/v/d. No gabriel/neck/ chest/abd or gu complaints. Objective: AAO x3, PERRLA/EOMI no droop CN 2-12 grossly intact Pt with continued word finding issues KIRSTIN x 4 CDI Neuro Check Frequency: per ordered Urinary Catheter in Place: No - Physician Discussed Patient with : Romaine Patient Seen by : Romaine Neurosurgery Physical Exam - Vitals, I&O, Labs I and O 02/21/18 02/22/18 02/23/18 05:59 05:59 05:59 Intake Total 1839 1275 Output Total 1 2200 Balance 1838 -925 Weight 109.134 kg 104.8 kg 104.2 kg Intake: Oral (ml) 790 1275 IV Intake (ml) 1049 Output: Urine (ml) 2200 Incontinence 650 Toilet 1550 Estimated Blood Loss (ml) 1 Other: Intake Quantity Yes Sufficient Number of Voids Incontinence 1 1 Toilet 1 1 Number of Stools Incontinence 0 Vital Signs Temp Pulse Resp BP Pulse Ox 36.8 C 53 L 16 141/68 H 95 02/22/18 03:32 02/22/18 03:32 02/22/18 03:32 02/22/18 03:32 02/22/18 03:32 Laboratory Results 02/21/18 05:42 02/21/18 05:42 ICD10 Worksheet Patient Problems: Problems Problem Status Onset Intracranial space-occupying lesion Acute
[2018-02-22] MEDS: LISINOPRIL 5 MG TAB PO SCH (07:38)
[2018-02-22] MEDS: FAMOTIDINE 20 MG TAB PO SCH (07:47)
[2018-02-22] MEDS: SENNOSIDES/DOCUSATE SODIUM TAB PO SCH ×2 (07:48→21:45)
[2018-02-22] MEDS: ESCITALOPRAM OXALATE 10 MG TAB PO SCH (07:48)
[2018-02-22] MEDS: LORazepam 0.5 MG TAB PO SCH ×3 (07:48→21:44)
[2018-02-22] MEDS: traMADol 50 MG TAB PO PRN ×2 (07:50→20:26)
[2018-02-22] MEDS: INSULIN LISPRO 100 UNIT/ML SC SCH ×3 (08:41→18:32)
[2018-02-22] MEDS: ENOXAPARIN 40 MG/0.4 ML SYR SC SCH (08:42)
--- NOTE | 2018-02-22 11:37 | HOSPPROG ---
Hospitalist Progress Note Assessment/Plan: 62-year-old woman admitted from clinic with confusion and headaches. Found to have a brain mass associated with edema. She went to have a brain biopsy yesterday, And did well. Continues to complain of headache pain and some mild confusion. Has ongoing weakness # brain mass, no obvious primary noted on CT of the chest abdomen and pelvis * Reviewed neurosurgery notes, status post biopsy. * Continue dexamethasone for edema, decreased dose * Consult with Oncology once tissue diagnosis * Seizure precautions on Keppra * Continues with some mild cognitive issues and speech issues. * Continue therapies. 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 Coumadin held today post surgery will need to review with Neurosurgery 1 safe to resume anticoagulation. * Continue SCDs * Add lovenox, and resume coumadin in the next day or 2. * OK'd per NS # COPD, stable # diabetes, insulin sliding scale # GE reflux disease currently on famotidine, but symptoms much worse. * protonix * sucralfate prn. # hypertension, p.r.n. Enalapril # anxiety with panic disorder on Ativan p.r.n. # hepatitis-C, undetectable viral load Subjective: Complains of increasing heartburn. Objective: Vital Signs Temp Pulse Resp BP Pulse Ox 36.8 C 56 L 18 133/76 H 96 02/22/18 03:32 02/22/18 07:52 02/22/18 07:52 02/22/18 07:52 02/22/18 07:52 Laboratory Results 02/21/18 05:42 02/21/18 05:42 02/21/18 02/22/18 02/23/18 05:59 05:59 05:59 Intake Total 1839 1275 Output Total 1 2200 550 Balance 1838 -925 -550 PT 14.2 SEC (12.0-15.0) 02/22/18 05:46 INR 1.08 (0.83-1.16) 02/22/18 05:46 - Physical Exam Constitutional: no apparent distress Eyes: PERRL Ears, Nose, Mouth, Throat: moist mucous membranes Cardiovascular: regular rate and rhythym Respiratory: no respiratory distress Gastrointestinal: normoactive bowel sounds, soft, non-tender abdomen Genitourinary: no bladder fullness Skin: warm Musculoskeletal: generalized weakness Neurologic: AAOx3 Psychiatric: interacting appropriately ICD10 Worksheet Patient Problems: Problems Problem Status Onset Intracranial space-occupying lesion Acute
[2018-02-22] MEDS: PANTOPRAZOLE SODIUM 40 MG TAB PO SCH (11:48)
[2018-02-22] MEDS: SUCRALFATE 1 GM/10 ML UDCUP PO PRN ×2 (11:49→20:27)
[2018-02-22] MEDS: OXYCODONE/APAP 5/325 TAB PO PRN ×3 (13:50→21:44)
[2018-02-22] MEDS ORDERED: ENOXAPARIN 100 MG/ML SYR SC SCH (21:00)
[2018-02-22] MEDS ORDERED: INSULIN GLARGINE 100 UNITS/ML UNIT SC SCH (21:00)
[2018-02-22] MEDS: ENOXAPARIN 100 MG/ML SYR SC SCH (21:42)
[2018-02-23] MEDS: OXYCODONE/APAP 5/325 TAB PO PRN ×4 (04:55→21:21)
[2018-02-23] MEDS: DEXAMETHASONE 4 MG/ML VIAL IVP SCH ×2 (07:25→18:47)
[2018-02-23] MEDS: ENOXAPARIN 100 MG/ML SYR SC SCH ×2 (08:33→21:19)
[2018-02-23] MEDS: LORazepam 0.5 MG TAB PO SCH ×3 (08:33→21:20)
[2018-02-23] MEDS: SENNOSIDES/DOCUSATE SODIUM TAB PO SCH ×2 (08:33→21:20)
[2018-02-23] MEDS: LISINOPRIL 5 MG TAB PO SCH (08:34)
[2018-02-23] MEDS: ESCITALOPRAM OXALATE 10 MG TAB PO SCH (08:34)
[2018-02-23] MEDS: PANTOPRAZOLE SODIUM 40 MG TAB PO SCH (08:34)
[2018-02-23] MEDS ORDERED: INSULIN GLARGINE 100 UNITS/ML UNIT SC SCH (08:38)
[2018-02-23] MEDS: INSULIN LISPRO 100 UNIT/ML SC SCH ×3 (10:01→18:46)
[2018-02-23] MEDS: SUCRALFATE 1 GM/10 ML UDCUP PO PRN (10:08)
--- NOTE | 2018-02-23 13:38 | PDCONSULT ---
B[facility] Tender Note: Hematology/oncology consultation note Reason for consultation: Brain mass Requesting provider Dr. Dayan Perea History of present illness: Faby is a very pleasant 62-year-old female who we are seeing an evaluation for a brain mass. She states that for 2 days prior to admission she was having significant headaches localized to the right portion of her head radiating down her neck. She also noted visual changes within her right eye alongside some difficulties with speaking. She denies any weakness in her arms or legs. She had no seizure-like activity. The headache continued to worsen and she presented to [facility] on 02/17/2018. She initially had a CT scan there is concerning for a mass within the right temporal/occipital region. An MRI of the brain was obtained on 02/18/2018 that demonstrated multiple enhancing lesions in the posterior right temporal occipital lesion. On 2018 she underwent stereotactic biopsy of the right posterior temporal brain. Since surgery she continues have significant headaches which have not improved. She currently is disabled but lives alone. Past medical history: Deep vein thrombosis Hepatitis C Type 2 diabetes COPD Anxiety GERD Gastroparesis Past surgical history: Appendectomy, cholecystectomy, gastric bypass Medications: Reviewed in [place] Review of systems: 12 point review systems was obtained and was negative unless stated in HPI. 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 She quit smoking 14 years ago. She smoked 1 pack per day for 10 years. Family history: Father with lung cancer in his 50s he was a smoker. Brother with pancreatic cancer in his 50s. Brother with prostate cancer in his 70s. Sister with breast cancer which was limited stage Allergies: Meperidine Physical examination: Vital signs reviewed General: Pleasant, conversant no acute distress HEENT: Oropharynx clear extra movements are intact pupils equal round reactive to light Neuro: Cranial nerves 2-12 intact motor and sensation Cardiovascular: 2/6 systolic murmur regular rate and rhythm Pulmonary: Clear to auscultation bilaterally Abdomen: Obese abdomen soft nontender nondistended bowel sounds are present Skin: Multiple scars noted on the upper extremities Extremities: 1+ bilateral lower extremity edema Assessment plan: Faby is a 62-year-old female with history of DVT who presents for evaluation for brain mass. 1. Brain masses: She has multiple enhancing lesions noted on the MRI on 2018. I did discuss with pathology [facility] and preliminarily is being read as not a GBM, metastatic cancer, or a lymphoma. Per our discussion, a low-grade astrocytoma, demyelinating disease, and infection remain in the differential. Her path is being sent down to [facility] for review which will take some time. I will make her an appointment to see us at [facility] in [place] when the pathology is finalized. 2. Hx of DVT: I agree with Lovenox for the time being. 3. Headache: Likely 2/2 to #1.
[2018-02-23] MEDS ORDERED: INSULIN GLARGINE 100 UNITS/ML UNIT SC ONE (14:00)
--- NOTE | 2018-02-23 14:20 | HOSPPROG ---
Hospitalist Progress Note Assessment/Plan: 62-year-old woman admitted from clinic with confusion and headaches. Found to have multifocal lesions associated with edema on MRI, consistent with multifocal glio, lymphoma, infection. She went to have a brain biopsy And did well. Continues to complain of headache pain and some mild confusion. Has ongoing weakness. The headache is on the right side and has been ongoing for several days. It started about a month before admit and got worse a couple days prior to admission. # brain mass, no obvious primary noted on CT of the chest abdomen and pelvis, biopsy results discussed with oncology: Not glio or lymphoma, unclear if demyelinating, infectious or slow astrocytoma. * Reviewed with oncology * headaches main complaint * consider neuro eval to assist in headache pain * not ready for transfer yet due to uncontrolled headache pain * no fevers or leukocytosis to suggest infection. * path sent to , likely back at the end of the week. 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 * resumed full dose lovenox, hold on coumadin for now. # COPD, stable # diabetes, insulin sliding scale * increase lantus # GE reflux disease currently on famotidine, but symptoms much worse. * protonix * sucralfate prn. # hypertension, p.r.n. Enalapril # anxiety with panic disorder on Ativan p.r.n. # hepatitis-C, undetectable viral load Subjective: continues to complain of headache in right side of head. very anxious. Objective: Vital Signs Temp Pulse Resp BP Pulse Ox 37.3 C 93 14 121/71 H 90 L 02/23/18 12:00 02/23/18 12:00 02/23/18 12:00 02/23/18 12:00 02/23/18 12:00 Laboratory Results 02/21/18 05:42 02/21/18 05:42 02/22/18 02/23/18 02/24/18 05:59 05:59 05:59 Intake Total 1275 950 Output Total 2200 1300 Balance -925 -350 PT 14.2 SEC (12.0-15.0) 02/22/18 05:46 INR 1.08 (0.83-1.16) 02/22/18 05:46 - Physical Exam Constitutional: obese, uncomfortable Eyes: PERRL Ears, Nose, Mouth, Throat: moist mucous membranes Cardiovascular: regular rate and rhythym Respiratory: no respiratory distress, clear to auscultation Gastrointestinal: soft, non-tender abdomen Skin: normal color Musculoskeletal: abnormal gait, generalized weakness Neurologic: AAOx3 Psychiatric: interacting appropriately, anxious ICD10 Worksheet Patient Problems: Problems Problem Status Onset Intracranial space-occupying lesion Acute
--- NOTE | 2018-02-23 16:25 | ASMTCMCOM ---
CM Note CM Note Notes: Pt [facility] worker is Merari Lacy [phone]. Pt is receiving personal care 4/wk for 3 hours and non-medical transportation. Clinicals faxed to [facility] per her request. Pt does not meet criteria for [facility] inpatient rehab. PT rec HHC, today OT rec HHC, SITE SAFETY COORDINATOR rec inpatient rehab. Pt reports she would have 24/hr supervision at home. CM will discuss skilled HHC with pt. Date Signed: 02/23/2018 04:24 PM Electronically Signed By:ELEANOR Romero
[2018-02-23] MEDS: traMADol 50 MG TAB PO PRN (17:29)
[2018-02-23] MEDS ORDERED: traMADol 50 MG TAB PO PRN (18:28)
[2018-02-23] MEDS: INSULIN GLARGINE 100 UNITS/ML UNIT SC SCH (21:20)
[2018-02-24] MEDS: SUCRALFATE 1 GM/10 ML UDCUP PO PRN (03:24)
[2018-02-24] MEDS: OXYCODONE/APAP 5/325 TAB PO PRN ×3 (03:26→14:21)
--- NOTE | 2018-02-24 05:32 | GCON ---
NEUROLOGY CONSULTATION REFERRING PHYSICIAN: Dayan Perea MD HISTORY: The patient is a 62-year-old woman who I am asked to see in neurologic consultation in [facility] rd to abnormal brain MRI with question of tumor versus an alternative explanation. The patient prese nted to the hospital on February 17. At that time, she had reported experiencing some headache and c hange in her mental state and confusion over the last week or so, and the headache has been about 3 o r 4 weeks. She was having trouble with word finding. There was decreased concentration and attentio n and she came in for her assessment. She has also noticed some problems with a little bit of weakne ss on the left side. A workup included a brain MRI showing multiple large enhancing lesions with sev ere edema and [id number] shift initially raising concern of a glioblastoma or metastatic process o r other etiologies. I was informed today that the surgical path specimen did not indicate a high lik elihood of glioblastoma and other differential considerations needed to be included. As a result, I have been asked to comment and also assist with any headache management. Currently, the patient says that her headache is fairly mild or moderate. Her word finding is signif icantly improved with the implementation of steroids and she is not feeling so much left-sided abnorm alities. ADDITIONAL PAST MEDICAL HISTORY: Notable for cholecystectomy, gastric bypass, COPD, type 2 diabetes, gastroparesis, DVT, hepatitis C, agoraphobia, anxiety, obesity. MEDICATIONS: At home: Lorazepam, escitalopram, lisinopril, nystatin, meclizine, tramadol, warfarin, calcium, vitamin D. The patient currently is on Lovenox and is getting Decadron 4 mg every 12 hours. ALLERGIES: Demerol and opiates. SOCIAL HISTORY: She lives with a caregiver helping her in [place] normally. Former smoker. No al cohol or drugs. She has a son and she says her sister is in [place], [place]. FAMILY HISTORY: Breast cancer, lung cancer, ovarian cancer, prostate cancer, HI, stroke, diabetes, a lcoholic cirrhosis. PHYSICAL EXAMINATION: VITAL SIGNS: Reveal blood pressure of 101/76, pulse of 72, respirations 14, t emperature 36.9. GENERAL: She is an overweight woman, sitting up in the chair, in no acute distress . NEUROLOGIC: She is able to communicate with me fairly well with very mild word finding difficulti es and mild naming difficulties, but most of the time does fairly well and is oriented. She is calm and asked appropriate questions, but says that she has a hard time processing all the information. S he does recognize the current differential diagnosis as explained to her, but is a little confused ab out the details. Pupils are 3 mm and reactive. Extraocular movements intact. She has normal facial sensation, although a little left facial droop. Palate elevates symmetrically. Tongue protrudes mi dline. Motor exam reveals some mild generalized weakness and no clear asymmetry other than the right upper extremity seems a little weaker than the left proximally. Reflexes a little brisk on the left relative to the right. Sensation is preserved. I did not have her try to walk with me. IMPRESSION: Total unit time of 50 minutes. The patient has lesions in the right hemisphere as previ ously outlined with enhancement and prominent edema initially suspicious for primary glioma or metast atic process or lymphoma, but now pathology raising questions of alternative explanations. The aretha cteristics could also be tumefactive multiple sclerosis for which there is a highly specific treatmen t, although patients may then develop a relapsing remitting course and be appropriate for disease mod ifying therapies. Until such time that we have the final pathology, I would not make that conclusion and I do not feel we have to do a lumbar puncture at this stage, but would like to wait for the path ology. All of her symptoms are highly responsive to the steroid treatment so far and as long as she is stable tomorrow and has appropriate outpatient support, then she could be discharged with outpatie nt followup but it will depend on how she does. I will speak to her sister tomorrow at her request a s well just to help clarify information. /[id number]/MODL
[2018-02-24] MEDS: DEXAMETHASONE 4 MG/ML VIAL IVP SCH (06:13)
--- NOTE | 2018-02-24 08:09 | NEUROPROG ---
Assessment: Total unit time of 25 minutes. the patient is stable but does not want to go home. The differential diagnosis remains neoplasia vs tumefactive MS and much less likely any infectious process. Awaiting path results to determine next steps. Steroids seem to be helping. Subjective: The patient is just waking up this morning and says that she feels about the same. The headache is not severe. She describes it is mild currently. She does not have any complaints of new or worsening deficits beyond the mild trouble with word finding at times and generally feeling a little weak. Objective: Vital Signs Temp Pulse Resp BP Pulse Ox 36.9 C 53 L 18 116/56 L 96 02/24/18 07:37 02/24/18 07:37 02/24/18 07:37 02/24/18 07:37 02/24/18 07:37 Laboratory Results 02/21/18 05:42 02/21/18 05:42 02/23/18 02/24/18 02/25/18 05:59 05:59 05:59 Intake Total 950 850 Output Total 1300 2 Balance -350 848 PT 14.2 SEC (12.0-15.0) 02/22/18 05:46 INR 1.08 (0.83-1.16) 02/22/18 05:46 She is waking up but able to communicate effectively with generally fluent speech and preserved comprehension. Do not detect focal weakness beyond some weakness of the right upper extremity which she says is an old problem. Allergies/Adverse Reactions: meperidine [From Demerol] Allergy (Verified 02/17/18 12:45)
[2018-02-24] MEDS: PANTOPRAZOLE SODIUM 40 MG TAB PO SCH (09:25)
[2018-02-24] MEDS: LORazepam 0.5 MG TAB PO SCH (09:26)
[2018-02-24] MEDS: ESCITALOPRAM OXALATE 10 MG TAB PO SCH (09:26)
[2018-02-24] MEDS: SENNOSIDES/DOCUSATE SODIUM TAB PO SCH (09:27)
[2018-02-24] MEDS: LISINOPRIL 5 MG TAB PO SCH (09:28)
[2018-02-24] MEDS: INSULIN GLARGINE 100 UNITS/ML UNIT SC SCH (09:31)
[2018-02-24] MEDS: ENOXAPARIN 100 MG/ML SYR SC SCH (09:33)
[2018-02-24] MEDS: INSULIN LISPRO 100 UNIT/ML SC SCH ×2 (10:16→12:53)
--- NOTE | 2018-02-24 10:36 | PDIAF ---
- Diagnosis Diagnosis: Brain mass Code Status: Full Code - Medication Management Discharge Medications: electronically signed and located in the Home Medication List. PICC Care - Routine: N/A - Orders Services needed: Home Care, Registered Nurse, Certified Manager Publishing, Physical Therapy, Occupational Therapy Home Care Face to Face: I certify that this patient was under my care and that I had the required [id number] encounter meeting the encounter requirements on the discharge day. My findings support the fact that the patient is homebound as defined in Home Care Face to Face Continued: CMS Chapter 7 Medicare Benefits Manual 30.1.1 , The condition of the patient is such that there exists a normal inability to leave home and consequently, leaving home would require a considerable and taxing effort. Isolation Type: None Diet Recommendation: no restrictions on diet Diet Texture: Regular Texture Diet, Thin Liquids, Meds Whole w/Liquids Additional Instructions: -follow up with Primary care on Thursday -no scrubbing of incision -follow up with Dr Gonzalez in 2 weeks for a recheck -call with any questions or concerns -take medications as directed - Follow Up Care Current Providers and Referrals: Keny Gonzalez MD [Medical Doctor] - follow up in 2 weeks (follow up in 1-2 weeks) Ladarius Moon MD [Medical Doctor] - Lavinia Mack MD [Primary Care Provider] - As per Instructions
[2018-02-24 11:23] VITALS: BP 98/77
[2018-02-24] MEDS ORDERED: ENOXAPARIN 60 MG/0.6 ML SYR SC ONE (12:00)
--- NOTE | 2018-02-24 12:26 | ASMTLACE ---
LACE Length of stay for Answers: 4-6 days current admission Acuity / Level of Answers: Yes Care: Did the patient have an inpatient admission? Comorbidities - select Answers: Chronic pulmonary disease all that apply Diabetes (uncontrolled or controlled) Other Notes: DVT; Hep C; HTN # of Emergency department Answers: 1-2 visits in the last 6 months Social determinants Answers: Mental health diagnosis (anxiety, depression, pers onality disorders, etc.) Score: 15 Date Signed: 02/24/2018 12:25 PM Electronically Signed By:Jeri Montero RN
--- NOTE | 2018-02-24 12:32 | ASMTCMCOM ---
CM Note CM Note Notes: Discussed dc plan with hospitalist and pt. Pt will dc home w/current non skilled care and skilled. CM notified Kalani at [facility] and she can accept pt for RN/PT/OT/COMPLIANCE ASSISTANT. Pt arranging caregiver to pick her up. DC Plan: Homecare/ [facility] Date Signed: 02/24/2018 12:31 PM Electronically Signed By:Jeri Montero RN
--- NOTE | 2018-02-24 12:38 | ASMTDCNOTE ---
Case Management Discharge Discharge Order Complete? Answers: Yes Followup Appointment 03/02/2018 10:30 AM Patient to Obtain Answers: Independently Medications Transportation Arranged Answers: Family/Friends Faxed Final Orders Answers: Yes Discharge Comments Notes: D/w NUCLEAR EQUIPMENT DESIGN ENGINEER, final orders faxed. Kalani at [facility] notified, she will have RN go over Lovenox inj. CM explained all details to pt, she will curing pickling packer her RXs at [facility]. Date Signed: 02/24/2018 12:37 PM Electronically Signed By:Jeri Montero RN
--- NOTE | 2018-02-24 15:15 | ASMTCMCOM ---
CM Note CM Note Notes: [facility] reports pt is open with [facility] RN, referral sent in [facility] to [facility]. Pt updated. Date Signed: 02/24/2018 03:14 PM Electronically Signed By:ELEANOR Romero
--- NOTE | 2018-02-24 16:14 | GDS ---
DISCHARGE DIAGNOSES: 1. Brain mass, unclear etiology. 2. History of recurrent deep venous thrombosis. 3. Chronic obstructive pulmonary disease. 4. Diabetes. 5. Gastroesophageal reflux disease. 6. Hypertension. 7. Anxiety with panic disorder. 8. Hepatitis C. STUDIES AND PROCEDURES DONE: 1. Brain biopsy. 2. CT of the head. 3. CT of the abdomen. 4. CT angio of the chest. 5. MRI of the brain. CONSULTATIONS: 1. Neurology. 2. Neurosurgery. 3. Oncology. PHYSICAL EXAM: GENERAL: The patient is alert. VITAL SIGNS: Afebrile at 36.8. Pulse is 82. Respi ratory rate 17. Blood pressure is 120/72. She is saturating greater than 90% on room air. I have seen and evaluated the patient on the day of discharge. HOSPITAL COURSE: The patient is a 62-year-old female admitted after experiencing confusion. She was evaluated and diagnosed with: 1. Brain mass. The etiology of this is unclear at the time of disposition. She did have a biopsy p erformed during this hospitalization. I reviewed this with Oncology. Neurology as well as Neurosurg delphine have consulted on the patient during this hospitalization. She still has a mild headache but fee ls significantly better. Pathology is pending at the time of this dictation. 2. History of recurrent DVTs. Her Coumadin has been continued. She has been bridged with Lovenox. 3. COPD. This is stable. 4. History of diabetes. The patient has been discharged on metformin. It is difficult to determine the dose of insulin the patient will require secondary to the fact that she is on Decadron for her r ecent diagnosis of brain mass. She will follow with her primary care physician in the outpatient set ting to determine further insulin regimen ut at this time will be on metformin. 5. Gastroesophageal reflux disease. We will continue her previously prescribed Protonix. 6. Hypertension. This is stable. 7. Anxiety with panic disorder. The patient is on Ativan p.r.n. 8. Hepatitis C. No needs at this time. DISPOSITION: The patient will be discharged home with a significant amount of home care. This inclu radha RN, PT, OT, and LAB COURIER. The patient also has an independent caregiver at home who will be present w ith her. FOLLOWUP: Followup will be with Neurology, Neurosurgery, her primary care physician, Oncology. The patient does have anna in that will require removal on 02/28/2018. DISCHARGE MEDICATIONS: Please refer to EMR form. I have provided the patient prescriptions for Deca dron taper, metformin 500 mg b.i.d., Protonix 40 mg daily, Senokot, Carafate, Lovenox 150 mg daily fo r bridge therapy. I have not discontinued her previously prescribed home medications. I have spent greater than 35 minutes in the care, coordination, and management of this patient's disp osition and coordination with Oncology as well as Case Management. /[id number]/MODL
[2018-02-25] MEDS ORDERED: ENOXAPARIN 150 MG/ML SYR SC SCH (09:00)
--- NOTE | 2018-02-25 09:33 | ASDISCHSUM ---
Discharge Information Plan Status:Home with Home Health Medically Cleared to Leave: Discharge Date:02/24/2018 03:39 PM CM D/C Disposition:Home Health Service ADT D/C Disposition:Home Health Service Projected Discharge Date:02/24/2018 11:00 AM Transportation at D/C:Friend Discharge Delay Reason: Follow-Up Date:02/24/2018 11:00 AM Discharge Slot: Final Diagnosis: Placement Information Referral Type:*Home Health Care Services Referral ID:[id number] Provider Name:[facility] Address 1:[address] Address 2: City:[place] Selection Factors: State:[place] Patient Contact Information Contact Name:GIA Relationship:Sister Address:[address] City:[facility] Phone: State/Zip Code:[place] [address] Email: Financial Information Financial Class:Medicaid Primary Plan Desc:MEDICAID [facility] Primary Plan Number:[id number] Secondary Plan Desc: Secondary Plan Number: Assessment Information LACE LACE Length of stay for Answers: 4-6 days current admission Acuity / Level of Answers: Yes Care: Did the patient have an inpatient admission? Comorbidities - select Answers: Chronic pulmonary disease all that apply Diabetes (uncontrolled or controlled) Other Notes: DVT; Hep C; HTN # of Emergency department Answers: 1-2 visits in the last 6 months Social determinants Answers: Mental health diagnosis (anxiety, depression, pers onality disorders, etc.) Score: 15 Date Signed: 02/24/2018 12:25 PM Electronically Signed By:Jeri Montero RN [facility] CM Progress Note CM Note CM Note Notes: Pt is a 62 y/o female admitted for headaches. Pt has been having difficulties walking, speaking and doing normal activities. Therapies have been ordered and awaiting recommendations. Pt is being followed by wound care. Needs are TBD at this time. CM to follow. Plan: TBD Date Signed: 02/18/2018 09:43 AM Electronically Signed By:RODRIGUEZ Walls [facility] CM Progress Note CM Note CM Note Notes: Patient is going for biopsy tomorrow and a possible lumbar puncture. [facility] and the paperwork has been placed in the front of her chart. D/C plan remains TBD . CM will follow. Date Signed: 02/19/2018 02:54 PM Electronically Signed By:Gina Brock LCSW [facility] CM Progress Note CM Note CM Note Notes: Spoke with patient and her roommate Braden about the home situation. Apparently, Braden is also a paid caregiver (works for an agency called [employer]), providing about 10-12 hrs/week. Patient also has a weekly RN visit. If I had to guess, she has HCBS through Medicaid. She could not remember the name of her [facility] caregiver, so we will have to call them tomorrow to find out. Patient says she'd like more help at home. She would certainly benefit from skilled help. Oncology has been consulted and bx results are pending. Case Management will follow. Date Signed: 02/21/2018 02:57 PM Electronically Signed By:Shelly Oconnell RN [facility] CM Progress Note CM Note CM Note Notes: Pt [facility] worker is Merari Regino [phone]. Pt is receiving personal care 4/wk for 3 hours and non-medical transportation. Clinicals faxed to [facility] per her request. Pt does not meet criteria for [facility] inpatient rehab. PT rec HHC, today OT rec HHC, PROCESS ENVIRONMENTAL TECHNICIAN rec inpatient rehab. Pt reports she would have 24/hr supervision at home. CM will discuss skilled HHC with pt. Date Signed: 02/23/2018 04:24 PM Electronically Signed By:ELEANOR Romero [facility] CM Progress Note CM Note CM Note Notes: Discussed dc plan with hospitalist and pt. Pt will dc home w/current non skilled care and skilled. GERMÁN notified Kalani at [facility] and she can accept pt for RN/PT/OT/[employer]. Pt arranging caregiver to pick her up. DC Plan: Homecare/ [facility] Date Signed: 02/24/2018 12:31 PM Electronically Signed By:Jeri Montero RN Case Management Discharge Plan Note Case Management Discharge Discharge Order Complete? Answers: Yes Followup Appointment 03/02/2018 10:30 AM Patient to Obtain Answers: Independently Medications Transportation Arranged Answers: Family/Friends Faxed Final Orders Answers: Yes Discharge Comments Notes: D/w [facility]IST PLEATER, final orders faxed. Kalani at [facility] notified, she will have RN go over [employer]. 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 Date Signed: 02/24/2018 12:37 PM Electronically Signed By:Jeri Montero RN [facility] CM Progress Note CM Note CM Note Notes: [facility] reports pt [facility] with [facility] Pt updated. Date Signed: 02/24/2018 03:14 PM Electronically Signed By:ELEANOR Romero Intervention Information
--- NOTE | 2018-03-01 12:12 | PQFORM ---
PHYSICIAN QUERY FORM Needs Your Response This query form is being sent to you to assure this patient record is coded properly. 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 Move cursor to area below the stars. When complete, hit "Save." Click on the "Sign" button, then click "Sign" again. Type in your PIN and hit "Enter." MTDD
== END 2018-02-24 15:39 | disposition home health service (06) | DRG 58 ==
LOC: CED 12:27 → CEDHOLD 13:26 → F2N 16:06 → F3N 02-22 13:27
PROVIDERS: ADMIT Internal Medicine; ATTEND Internal Medicine
PROC: 30233K1 Transfusion of Nonautologous Frozen Plasma into Peripheral Vein, Percutaneous Approach (ICD-10-PCS; 2018-02-17)
PROC: 00B03ZX Excision of Brain, Percutaneous Approach, Diagnostic (ICD-10-PCS; principal; 2018-02-20 08:00)
DX: G93.9 Disorder of brain, unspecified (principal); G93.6 Cerebral edema; D64.9 Anemia, unspecified; E11.9 Type 2 diabetes mellitus without complications; B19.20 Unspecified viral hepatitis C without hepatic coma; E66.9 Obesity, unspecified; J44.9 Chronic obstructive pulmonary disease, unspecified; K21.9 Gastro-esophageal reflux disease without esophagitis; I10 Essential (primary) hypertension; F41.0 Panic disorder [episodic paroxysmal anxiety]; Z86.718 Personal history of other venous thrombosis and embolism; Z79.01 Long term (current) use of anticoagulants; Z79.84 Long term (current) use of oral hypoglycemic drugs; Z87.891 Personal history of nicotine dependence
CPT/HCPCS: 70450-PO; 71045-PO; 80048-ER; 88323-90; 88342; 92507-GN; 92523-GN; 92526-GN; 92610-GN; 96374-ER; 96375-ER; 97110-GP; 97116-GP; 97162-GP; 97166-GO; 97530-GO; 97530-GP; 97535-GO; A9585; C1713; G0515-GO; J0690; J1100; J1580; J1650; J1815; J1885; J2001; J2270; J2704; J3010; Q9967